=== PATIENT | female | born 1945 | race Caucasian/White ===

== ENCOUNTER 2023-03-06 19:14 | Inpatient (IN) | payer MEDICARE, OTHER ==
[~2023-03-06] VITALS: Ht 157.5 cm; Wt 81.6 kg
[2023-03-06 22:02] LABS: BASOPHILS % (AUTO) 0.1 % (0.0-2.0); EOSINOPHILS % (AUTO) 0.2 % (0.0-6.0); HEMATOCRIT 42 % (33-45); HEMOGLOBIN 13.2 g/dL (11.5-14.8); LYMPHOCYTES # (AUTO) 1.6 K/uL (0.8-4.8); LYMPHOCYTES % (AUTO) 19.6 % (20.0-44.0); MEAN CORPUSCULAR HEMOGLOBIN 28 PG (26.0-33.0); MEAN CORPUSCULAR HGB CONC 31 g/dl (31.0-36.0); MEAN CORPUSCULAR VOLUME 88 fL (82-100); MONOCYTES # (AUTO) 1.2 K/uL (0.1-1.30); MONOCYTES % (AUTO) 14.4 % (2.0-12.0); NEUTROPHILS # (AUTO) 5.4 K/uL (1.8-8.9); NEUTROPHILS % (AUTO) 65.7 % (43.0-81.0); PLATELET COUNT (AUTO) 195 K/uL (150-450); RED BLOOD CELL COUNT(AUTO) 4.78 MIL/uL (4.0-5.2); RED CELL DISTRIBUTION WIDTH 18.4 % (11.5-15.0); WHITE BLOOD COUNT (AUTO) 8.2 K/uL (4.3-11.0)
[2023-03-06] MEDS ORDERED: ENALAPRILAT INJ (1.25 MG/ML) 1.25 MG/ML VIAL IV ONE ×2 (22:05→22:30)
[2023-03-06] MEDS ORDERED: ONDANSETRON HCL/PF 4 MG/2 ML VIAL ONE (22:09)
[2023-03-06 22:10] LABS: CALCIUM, SERUM 9.3 mg/dL (8.5-10.1); CARBON DIOXIDE 30 mmol/L (21-32); CHLORIDE 105 mmol/L (98-107); CREATININE 0.9 mg/dL (0.6-1.3); GLUCOSE 102 mg/dL (74-106); SODIUM SERUM 141 mmol/L (136-145); UREA NITROGEN, BLOOD 34 mg/dL (7-18)
[2023-03-06] MEDS ORDERED: ONDANSETRON HCL/PF 4 MG/2 ML VIAL IV ONE (22:30)
[2023-03-07] VITALS (8 sets, daily range): BP systolic 149–183; BP diastolic 78–110; TEMP 98.1–99.4; O2SAT 96–97
[2023-03-07] MEDS ORDERED: CLOPIDOGREL BISULFATE 75 MG TABLET PO ONE (01:30)
[2023-03-07] MEDS ORDERED: MAG HYDROX/AL HYDROX/SIMETH 30 ML UDC PO PRN (01:30)
[2023-03-07] MEDS ORDERED: MAGNESIUM HYDROXIDE 30 ML UDC PO PRN (01:30)
[2023-03-07] MEDS ORDERED: ONDANSETRON HCL/PF 4 MG/2 ML VIAL IVP PRN (01:30)
[2023-03-07] MEDS ORDERED: MORPHINE SULFATE INJ 2 MG/ML DISP.SYRIN IV PRN (01:30)
[2023-03-07] MEDS ORDERED: ZOLPIDEM TARTRATE 5 MG TABLET PO PRN (01:30)
[2023-03-07] MEDS ORDERED: Z GUARD REMEDY 4 OZ OINT TP PRN (01:30)
[2023-03-07] MEDS ORDERED: CLOPIDOGREL BISULFATE 75 MG TABLET ONE (01:42)
[2023-03-07] MEDS: ENOXAPARIN SODIUM 40 MG/0.4 ML DISP.SYRIN SQ SCH ×2 (02:52→21:02)
[2023-03-07] MEDS: hydrALAZINE HCL IV 20 MG VIAL IV PRN (03:55)
[2023-03-07] MEDS: ACETAMINOPHEN 325 MG TABLET PO PRN (04:01)
[2023-03-07] MEDS ORDERED: ONDA-97 PO (05:41)
[2023-03-07] MEDS ORDERED: ACET-73 PO (05:41)
[2023-03-07] MEDS ORDERED: DOXY-326 PO (05:41)
[2023-03-07] MEDS ORDERED: BACL10TA PO (05:41)
[2023-03-07] MEDS ORDERED: METO-357 PO (05:41)
[2023-03-07] MEDS ORDERED: PRED1TAB PO (05:41)
[2023-03-07] MEDS ORDERED: CEFP200T14 PO (05:41)
[2023-03-07] MEDS ORDERED: TRAM50TA PO (05:41)
[2023-03-07] MEDS ORDERED: PREG50CA PO (05:41)
[2023-03-07] MEDS ORDERED: AMLO-212 PO (05:41)
[2023-03-07] MEDS ORDERED: LEFL20TA PO (05:41)
[2023-03-07] MEDS ORDERED: LEVO75TA7 PO (05:41)
[2023-03-07] MEDS ORDERED: PREG100C PO (05:41)
[2023-03-07] MEDS ORDERED: PRED5TAB48 PO (05:41)
[2023-03-07] MEDS: PANTOPRAZOLE 40 MG TABLET.DR PO SCH (08:02)
[2023-03-07] MEDS: CLOPIDOGREL BISULFATE 75 MG TABLET PO SCH (08:37)
[2023-03-07] MEDS ORDERED: ACET325T53 PO (08:42)
[2023-03-07] MEDS ORDERED: SERT50TA PO (08:42)
[2023-03-07] MEDS ORDERED: CLONIDINE HCL 0.1 MG TABLET PO PRN (10:00)
[2023-03-07] MEDS ORDERED: diphenhydrAMINE HCL 25 MG CAPSULE PO PRN (10:30)
[2023-03-07] MEDS: CEFTRIAXONE 1 G in IV D5W 50 ML IV SCH (12:25)
[2023-03-07] MEDS: DOXYCYCLINE HYCLATE (100 MG) 100 MG TABLET PO SCH (16:19)
[2023-03-07] MEDS: BACLOFEN (10 MG) 10 MG TABLET PO SCH (16:19)
[2023-03-07] MEDS: TRAMADOL HCL 50 MG TABLET PO SCH (16:20)
[2023-03-07] MEDS: METOPROLOL SUCCINATE 50 MG TAB.SR.24H PO SCH (16:21)
[2023-03-07] MEDS ORDERED: CEFPODOXIME PROXETIL 200 MG PO SCH (21:00)
[2023-03-07] MEDS: PREGABALIN 100 MG CAPSULE PO SCH (21:01)
[2023-03-08] MEDS: hydrALAZINE HCL IV 20 MG VIAL IV PRN ×2 (00:20→21:16)
[2023-03-08 06:21] LABS: BASOPHILS % (AUTO) 0.3 % (0.0-2.0); EOSINOPHILS # (AUTO) 0.2 K/uL (0.0-0.7); EOSINOPHILS % (AUTO) 3.2 % (0.0-6.0); HEMATOCRIT 42 % (33-45); HEMOGLOBIN 13.2 g/dL (11.5-14.8); LYMPHOCYTES # (AUTO) 1.2 K/uL (0.8-4.8); LYMPHOCYTES % (AUTO) 17.9 % (20.0-44.0); MEAN CORPUSCULAR HEMOGLOBIN 28 PG (26.0-33.0); MEAN CORPUSCULAR HGB CONC 31 g/dl (31.0-36.0); MEAN CORPUSCULAR VOLUME 88 fL (82-100); MONOCYTES # (AUTO) 0.7 K/uL (0.1-1.30); MONOCYTES % (AUTO) 10.6 % (2.0-12.0); NEUTROPHILS # (AUTO) 4.7 K/uL (1.8-8.9); PLATELET COUNT (AUTO) 158 K/uL (150-450); RED BLOOD CELL COUNT(AUTO) 4.79 MIL/uL (4.0-5.2); RED CELL DISTRIBUTION WIDTH 18.3 % (11.5-15.0); WHITE BLOOD COUNT (AUTO) 6.9 K/uL (4.3-11.0)
[2023-03-08 06:56] LABS: CALCIUM, SERUM 8.5 mg/dL (8.5-10.1); CREATININE 0.7 mg/dL (0.6-1.3); MAGNESIUM 2.1 mg/dL (1.8-2.4); PHOSPHORUS 2.3 mg/dL (2.5-4.9); POTASSIUM 3.7 mmol/L (3.5-5.1)
[2023-03-08 07:03] LABS: THYROID STIMULATING HORMONE 1.793 uIU/mL (0.358-3.74)
[2023-03-08 08:00] VITALS: BP 177/104; TEMP 98.3; O2SAT 96
[2023-03-08] MEDS: SERTRALINE HCL 50 MG TABLET PO SCH (08:15)
[2023-03-08] MEDS: BACLOFEN (10 MG) 10 MG TABLET PO SCH ×2 (08:15→17:02)
[2023-03-08] MEDS: PANTOPRAZOLE 40 MG TABLET.DR PO SCH (08:15)
[2023-03-08] MEDS: LEVOTHYROXINE SODIUM 75 MCG TABLET PO SCH (08:15)
[2023-03-08] MEDS: predniSONE 20 MG TABLET PO SCH (08:16)
[2023-03-08] MEDS: DOXYCYCLINE HYCLATE (100 MG) 100 MG TABLET PO SCH ×2 (08:16→17:02)
[2023-03-08] MEDS: TRAMADOL HCL 50 MG TABLET PO SCH ×2 (08:17→17:02)
[2023-03-08] MEDS: CLOPIDOGREL BISULFATE 75 MG TABLET PO SCH (08:25)
[2023-03-08] MEDS: METOPROLOL SUCCINATE 50 MG TAB.SR.24H PO SCH ×2 (08:25→17:02)
[2023-03-08] MEDS ORDERED: LEFLUNOMIDE 20 MG TABLET PO SCH (09:00)
[2023-03-08] MEDS ORDERED: AMLODIPINE BESYLATE 5 MG TABLET PO SCH (09:00)
[2023-03-08] MEDS ORDERED: LEFLUNOMIDE 10 MG PO SCH (09:00)
[2023-03-08] MEDS: CEFTRIAXONE 1 G in IV D5W 50 ML IV SCH (12:33)
[2023-03-08] MEDS ORDERED: NEUTRA PHOS 1 POWD.PACKET PO ONE (18:00)
[2023-03-08 19:17] VITALS: BP 149/72; TEMP 99; O2SAT 96
[2023-03-08 20:00] VITALS: BP 160/92; TEMP 99; O2SAT 96
[2023-03-08] MEDS: PREGABALIN 100 MG CAPSULE PO SCH (21:16)
[2023-03-08] MEDS: ENOXAPARIN SODIUM 40 MG/0.4 ML DISP.SYRIN SQ SCH (21:17)
[2023-03-09] VITALS: BP 141/73; TEMP 98.6; O2SAT 99
[2023-03-09 05:17] VITALS: BP 143/77; TEMP 98.5; O2SAT 96
[2023-03-09] MEDS: ACETAMINOPHEN 325 MG TABLET PO PRN ×2 (06:00→21:01)
[2023-03-09 06:02] LABS: APPEARANCE,URINE TURBID (CLEAR); BILIRUBIN,URINE NEGATIVE (NEGATIVE); BLOOD, URINE 1+ Ery/uL (NEGATIVE); COLOR,URINE DARK YELLOW (YELLOW); KETONES,URINE NEGATIVE (NEGATIVE); LEUKOCYTE ESTERASE ,URINE 1+ (NEGATIVE); NITRITE, URINE POSITIVE (NEGATIVE); PH,URINE 6.5 (5.0-8.0); PROTEIN,URINE TRACE mg/dl (NEGATIVE); UGLUCOSE NEGATIVE (NEGATIVE); UROBILINOGEN,URINE 0.2 EU/dL (0.2)
[2023-03-09 06:03] LABS: ADD URINE CULTURE YES; BACTERIA,URINE Moderate /HPF (None Seen); SQUAMOUS EPITHELIAL CELL,UR Rare /HPF (None Seen); WBC,URINE 21-50 /HPF (0-3)
[2023-03-09 06:18] LABS: BASOPHILS % (AUTO) 0.5 % (0.0-2.0); EOSINOPHILS # (AUTO) 0.2 K/uL (0.0-0.7); EOSINOPHILS % (AUTO) 3.4 % (0.0-6.0); HEMATOCRIT 41 % (33-45); HEMOGLOBIN 12.9 g/dL (11.5-14.8); LYMPHOCYTES # (AUTO) 1.8 K/uL (0.8-4.8); LYMPHOCYTES % (AUTO) 31.5 % (20.0-44.0); MEAN CORPUSCULAR HEMOGLOBIN 28 PG (26.0-33.0); MEAN CORPUSCULAR HGB CONC 31 g/dl (31.0-36.0); MEAN CORPUSCULAR VOLUME 88 fL (82-100); MONOCYTES # (AUTO) 0.8 K/uL (0.1-1.30); MONOCYTES % (AUTO) 13.3 % (2.0-12.0); NEUTROPHILS % (AUTO) 51.3 % (43.0-81.0); PLATELET COUNT (AUTO) 157 K/uL (150-450); RED BLOOD CELL COUNT(AUTO) 4.69 MIL/uL (4.0-5.2); RED CELL DISTRIBUTION WIDTH 18.3 % (11.5-15.0); WHITE BLOOD COUNT (AUTO) 5.8 K/uL (4.3-11.0)
[2023-03-09 06:40] LABS: CALCIUM, SERUM 8.7 mg/dL (8.5-10.1); CARBON DIOXIDE 31 mmol/L (21-32); CHLORIDE 104 mmol/L (98-107); CREATININE 0.7 mg/dL (0.6-1.3); GLUCOSE 82 mg/dL (74-106); MAGNESIUM 2.3 mg/dL (1.8-2.4); PHOSPHORUS 3.4 mg/dL (2.5-4.9); SODIUM SERUM 140 mmol/L (136-145); UREA NITROGEN, BLOOD 27 mg/dL (7-18)
[2023-03-09 07:00] VITALS: BP 139/79; TEMP 98.8; O2SAT 97
[2023-03-09] MEDS: predniSONE 20 MG TABLET PO SCH (08:43)
[2023-03-09] MEDS: TRAMADOL HCL 50 MG TABLET PO SCH ×2 (08:43→16:43)
[2023-03-09] MEDS: PANTOPRAZOLE 40 MG TABLET.DR PO SCH (08:43)
[2023-03-09] MEDS: LEVOTHYROXINE SODIUM 75 MCG TABLET PO SCH (08:43)
[2023-03-09] MEDS: SERTRALINE HCL 50 MG TABLET PO SCH (08:44)
[2023-03-09] MEDS: CLOPIDOGREL BISULFATE 75 MG TABLET PO SCH (08:44)
[2023-03-09] MEDS: DOXYCYCLINE HYCLATE (100 MG) 100 MG TABLET PO SCH ×2 (08:44→16:44)
[2023-03-09] MEDS: BACLOFEN (10 MG) 10 MG TABLET PO SCH ×2 (08:44→16:42)
[2023-03-09] MEDS: AMLODIPINE BESYLATE 10 MG TABLET PO SCH (08:44)
[2023-03-09] MEDS: METOPROLOL SUCCINATE 50 MG TAB.SR.24H PO SCH ×2 (08:45→16:44)
[2023-03-09] MEDS: LEFLUNOMIDE 10 MG PO SCH (08:46)
[2023-03-09] MEDS: CEFTRIAXONE 1 G in IV D5W 50 ML IV SCH (11:47)
[2023-03-09 12:00] VITALS: BP 130/55; TEMP 98.7; O2SAT 96
[2023-03-09] MEDS ORDERED: IV NS 0.9% 250 ML IV ONE (14:06)
[2023-03-09] MEDS ORDERED: IOHEXOL-350 100 ML VIAL IV ONE (14:06)
[2023-03-09] MEDS ORDERED: CT SWABBABLE VALVE TRANS SET 1 EA INFUS.SET MC ONE (14:06)
[2023-03-09] MEDS ORDERED: NITROGLYCERIN 0.4 MG/TAB BOTTLE ONE (14:10)
[2023-03-09] MEDS ORDERED: METOPROLOL TARTRATE INJ 5 MG/5 ML AMPUL ONE ×4 (14:11→15:08)
[2023-03-09] MEDS ORDERED: NITROGLYCERIN 0.4 MG/TAB BOTTLE SL ONE (14:30)
[2023-03-09] MEDS: METOPROLOL TARTRATE INJ 5 MG/5 ML AMPUL IVP PRN ×6 (14:40→15:05)
[2023-03-09 16:00] VITALS: BP 124/65; TEMP 98.1; O2SAT 97
[2023-03-09 20:00] VITALS: BP 120/62; TEMP 98.7; O2SAT 97
[2023-03-09] MEDS: PREGABALIN 100 MG CAPSULE PO SCH (21:01)
[2023-03-09] MEDS: ENOXAPARIN SODIUM 40 MG/0.4 ML DISP.SYRIN SQ SCH (21:03)
[2023-03-10] VITALS (7 sets, daily range): BP systolic 134–154; BP diastolic 67–85; TEMP 97.7–99.3; O2SAT 96–98
[2023-03-10] MEDS: PANTOPRAZOLE 40 MG TABLET.DR PO SCH (08:29)
[2023-03-10] MEDS: LEVOTHYROXINE SODIUM 75 MCG TABLET PO SCH (08:30)
[2023-03-10] MEDS: DOXYCYCLINE HYCLATE (100 MG) 100 MG TABLET PO SCH ×2 (08:31→17:34)
[2023-03-10] MEDS: BACLOFEN (10 MG) 10 MG TABLET PO SCH ×2 (08:31→17:34)
[2023-03-10] MEDS: SERTRALINE HCL 50 MG TABLET PO SCH (08:31)
[2023-03-10] MEDS: TRAMADOL HCL 50 MG TABLET PO SCH ×2 (08:32→17:34)
[2023-03-10] MEDS: predniSONE 20 MG TABLET PO SCH (08:32)
[2023-03-10] MEDS: CLOPIDOGREL BISULFATE 75 MG TABLET PO SCH (08:33)
[2023-03-10] MEDS: AMLODIPINE BESYLATE 10 MG TABLET PO SCH (08:37)
[2023-03-10] MEDS: LEFLUNOMIDE 10 MG PO SCH (08:37)
[2023-03-10] MEDS: METOPROLOL SUCCINATE 50 MG TAB.SR.24H PO SCH ×2 (08:38→17:34)
[2023-03-10] MEDS: CEFTRIAXONE 1 G in IV D5W 50 ML IV SCH (12:22)
[2023-03-10] MEDS: ACETAMINOPHEN 325 MG TABLET PO PRN (12:22)
[2023-03-10] MEDS: ENOXAPARIN SODIUM 40 MG/0.4 ML DISP.SYRIN SQ SCH (20:34)
[2023-03-10] MEDS: PREGABALIN 100 MG CAPSULE PO SCH (22:16)
[2023-03-11 08:00] VITALS: BP 130/74; TEMP 98.1; O2SAT 95
[2023-03-11] MEDS: LEVOTHYROXINE SODIUM 75 MCG TABLET PO SCH (08:27)
[2023-03-11] MEDS: TRAMADOL HCL 50 MG TABLET PO SCH (08:28)
[2023-03-11] MEDS: METOPROLOL SUCCINATE 50 MG TAB.SR.24H PO SCH (08:28)
[2023-03-11] MEDS: PANTOPRAZOLE 40 MG TABLET.DR PO SCH (08:28)
[2023-03-11] MEDS: BACLOFEN (10 MG) 10 MG TABLET PO SCH (08:29)
[2023-03-11] MEDS: CLOPIDOGREL BISULFATE 75 MG TABLET PO SCH (08:29)
[2023-03-11] MEDS: predniSONE 20 MG TABLET PO SCH (08:29)
[2023-03-11] MEDS: DOXYCYCLINE HYCLATE (100 MG) 100 MG TABLET PO SCH (08:29)
[2023-03-11] MEDS: SERTRALINE HCL 50 MG TABLET PO SCH (08:29)
[2023-03-11 08:33] VITALS: BP 130/74
[2023-03-11] MEDS: AMLODIPINE BESYLATE 10 MG TABLET PO SCH (08:33)
[2023-03-11] MEDS: LEFLUNOMIDE 10 MG PO SCH (10:38)
== END 2023-03-11 11:49 | DRG 206 ==
LOC: ER 19:17 → TELE 03-07 01:33 → MED 03-10 12:21
PROVIDERS: ADMIT Internal Medicine; ATTEND Internal Medicine
DX: M94.0 Chondrocostal junction syndrome [Tietze] (principal); G93.32 Myalgic encephalomyelitis/chronic fatigue syndrome; M06.9 Rheumatoid arthritis, unspecified; I25.10 Atherosclerotic heart disease of native coronary artery without angina pectoris; E78.5 Hyperlipidemia, unspecified; I10 Essential (primary) hypertension; Z86.73 Personal history of transient ischemic attack (TIA), and cerebral infarction without residual deficits; Z88.0 Allergy status to penicillin; Z79.84 Long term (current) use of oral hypoglycemic drugs; Z88.2 Allergy status to sulfonamides; E11.9 Type 2 diabetes mellitus without complications; R10.13 Epigastric pain; G89.4 Chronic pain syndrome; K22.0 Achalasia of cardia; U09.9 Post COVID-19 condition, unspecified; Z79.52 Long term (current) use of systemic steroids
CPT/HCPCS: 36415; 71045-TC; 75574; 80048-TC; 81001; 83735-TC; 84100-TC; 84443-TC; 84484-TC; 85025-TC; 87040-TC; 87081-TC; 87086-TC; 93307-TC; 94799-TC; A4223; G0378; J0360; J0696; J1650; J2270; J2405; J3490; J7040; J7050; J7060; Q0163; Q9967

== ENCOUNTER 2023-03-13 18:48 | Inpatient (IN) | payer MEDICARE, OTHER ==
[~2023-03-13] VITALS: Ht 162.6 cm; Wt 73.0 kg
[~2023-03-13 18:48] MED LIST: ACET325T53 PO; AMLO-212 PO; BACL10TA PO; CEFP200T14 PO; DOXY-326 PO; LEFL20TA PO; LEVO75TA7 PO; METO-357 PO; ONDA-97 PO; PRED1TAB PO; PREG100C PO; PREG50CA PO; SERT50TA PO; TRAM50TA PO
[2023-03-13] MEDS ORDERED: BISA10SU11 RC (19:26)
[2023-03-13] MEDS ORDERED: NA P133E RC (19:26)
[2023-03-13] MEDS ORDERED: MAGN400O6 PO (19:26)
[2023-03-13] MEDS ORDERED: HYDR-4077 PO (19:26)
[2023-03-13] MEDS ORDERED: ASPI-1420 PO (19:26)
[2023-03-13] MEDS ORDERED: PRED1TAB PO (19:26)
[2023-03-13] MEDS ORDERED: DOCU-141 PO (19:26)
[2023-03-13] MEDS ORDERED: ACET-2605 PO ×2 (19:26)
[2023-03-13] MEDS ORDERED: ATOR20TA PO (19:26)
[2023-03-13 20:08] LABS: BASOPHILS # (AUTO) 0.1 K/uL (0.0-0.2); BASOPHILS % (AUTO) 0.7 % (0.0-2.0); EOSINOPHILS % (AUTO) 0.3 % (0.0-6.0); HEMATOCRIT 33 % (33-45); HEMOGLOBIN 10.2 g/dL (11.5-14.8); LYMPHOCYTES # (AUTO) 2.8 K/uL (0.8-4.8); MEAN CORPUSCULAR HEMOGLOBIN 27 PG (26.0-33.0); MEAN CORPUSCULAR HGB CONC 31 g/dl (31.0-36.0); MEAN CORPUSCULAR VOLUME 88 fL (82-100); MONOCYTES # (AUTO) 1.2 K/uL (0.1-1.30); MONOCYTES % (AUTO) 11.2 % (2.0-12.0); NEUTROPHILS % (AUTO) 62.8 % (43.0-81.0); PLATELET COUNT (AUTO) 159 K/uL (150-450); RED BLOOD CELL COUNT(AUTO) 3.73 MIL/uL (4.0-5.2); RED CELL DISTRIBUTION WIDTH 17.8 % (11.5-15.0); WHITE BLOOD COUNT (AUTO) 11.1 K/uL (4.3-11.0)
[2023-03-13 20:30] LABS: CALCIUM, SERUM 8.7 mg/dL (8.5-10.1); CARBON DIOXIDE 34 mmol/L (21-32); CHLORIDE 106 mmol/L (98-107); GLUCOSE 97 mg/dL (74-106); POTASSIUM 4.7 mmol/L (3.5-5.1); SODIUM SERUM 143 mmol/L (136-145); UREA NITROGEN, BLOOD 36 mg/dL (7-18)
[2023-03-13 20:36] LABS: ALANINE AMINOTRANSFERASE 18 U/L (12-78); ALBUMIN 2.4 g/dL (3.4-5.0); ALKALINE PHOSPHATASE 51 U/L (46-116); ASPARTATE AMINOTRANSFERASE 18 U/L (15-37); BILIRUBIN,DIRECT 0.1 mg/dL (0.0-0.2); BILIRUBIN,TOTAL 0.3 mg/dL (0.2-1.0); LIPASE 84 U/L (73-393); TOTAL PROTEIN, SERUM 5.7 g/dL (6.4-8.2)
[2023-03-13 21:54] LABS: APPEARANCE,URINE CLEAR (CLEAR); BILIRUBIN,URINE NEGATIVE (NEGATIVE); BLOOD, URINE NEGATIVE Ery/uL (NEGATIVE); COLOR,URINE YELLOW (YELLOW); KETONES,URINE NEGATIVE (NEGATIVE); LEUKOCYTE ESTERASE ,URINE NEGATIVE (NEGATIVE); NITRITE, URINE NEGATIVE (NEGATIVE); PROTEIN,URINE NEGATIVE (NEGATIVE); UGLUCOSE NEGATIVE (NEGATIVE); UROBILINOGEN,URINE 0.2 EU/dL (0.2)
[2023-03-13 23:30] VITALS: BP 132/68; TEMP 99
[2023-03-14] MEDS ORDERED: ACETAMINOPHEN 325 MG TABLET PO PRN (02:40)
[2023-03-14] MEDS ORDERED: ONDANSETRON HCL/PF 4 MG/2 ML VIAL IVP PRN (07:00)
[2023-03-14] MEDS ORDERED: Z GUARD REMEDY 4 OZ OINT TP PRN (07:00)
[2023-03-14] MEDS: IV NS 0.9% 1,000 ML IV PRN ×2 (07:07→20:30)
[2023-03-14] MEDS ORDERED: PANTOPRAZOLE 40 MG TABLET.DR PO SCH (07:30)
[2023-03-14] MEDS: LEVOTHYROXINE SODIUM 75 MCG TABLET PO SCH (07:39)
[2023-03-14 08:35] VITALS: BP 150/70; TEMP 97.9; O2SAT 100
[2023-03-14] MEDS ORDERED: LEFLUNOMIDE 20 MG TABLET PO SCH (09:00)
[2023-03-14] MEDS: TRAMADOL HCL 50 MG TABLET PO SCH (09:24)
[2023-03-14] MEDS: BACLOFEN (10 MG) 10 MG TABLET PO SCH ×2 (09:24→16:09)
[2023-03-14] MEDS: PREGABALIN 25 MG CAPSULE PO SCH (09:24)
[2023-03-14] MEDS: predniSONE 1 MG TABLET PO SCH (09:25)
[2023-03-14] MEDS: AMLODIPINE BESYLATE 5 MG TABLET PO SCH ×2 (09:26→20:27)
[2023-03-14 10:22] LABS: HEMOGLOBIN 9.5 g/dL (11.5-14.8)
[2023-03-14] MEDS: PANTOPRAZOLE 40 MG VIAL IV SCH ×2 (10:37→16:09)
[2023-03-14 17:57] LABS: HEMOGLOBIN 9.7 g/dL (11.5-14.8)
[2023-03-14 20:00] VITALS: BP 148/72; TEMP 99.5; O2SAT 100
[2023-03-14] MEDS: ACETAMINOPHEN 325 MG TABLET PO PRN (20:26)
[2023-03-14] MEDS: PREGABALIN 100 MG CAPSULE PO SCH (21:09)
[2023-03-14] MEDS: ATORVASTATIN 10 MG TABLET PO SCH (21:09)
[2023-03-15 01:49] LABS: HEMOGLOBIN 9.6 g/dL (11.5-14.8)
[2023-03-15 06:15] LABS: BASOPHILS # (AUTO) 0.1 K/uL (0.0-0.2); BASOPHILS % (AUTO) 1.3 % (0.0-2.0); EOSINOPHILS # (AUTO) 0.2 K/uL (0.0-0.7); EOSINOPHILS % (AUTO) 2.3 % (0.0-6.0); HEMATOCRIT 29 % (33-45); HEMOGLOBIN 9.1 g/dL (11.5-14.8); LYMPHOCYTES # (AUTO) 2.5 K/uL (0.8-4.8); MEAN CORPUSCULAR HEMOGLOBIN 28 PG (26.0-33.0); MEAN CORPUSCULAR HGB CONC 31 g/dl (31.0-36.0); MEAN CORPUSCULAR VOLUME 90 fL (82-100); MONOCYTES # (AUTO) 1.3 K/uL (0.1-1.30); MONOCYTES % (AUTO) 14.7 % (2.0-12.0); NEUTROPHILS # (AUTO) 4.6 K/uL (1.8-8.9); NEUTROPHILS % (AUTO) 52.7 % (43.0-81.0); PLATELET COUNT (AUTO) 170 K/uL (150-450); RED BLOOD CELL COUNT(AUTO) 3.27 MIL/uL (4.0-5.2); RED CELL DISTRIBUTION WIDTH 17.9 % (11.5-15.0); WHITE BLOOD COUNT (AUTO) 8.8 K/uL (4.3-11.0)
[2023-03-15 06:53] LABS: CALCIUM, SERUM 8.4 mg/dL (8.5-10.1); CREATININE 0.7 mg/dL (0.6-1.3); MAGNESIUM 1.7 mg/dL (1.8-2.4); PHOSPHORUS 2.7 mg/dL (2.5-4.9)
[2023-03-15] MEDS: LEVOTHYROXINE SODIUM 75 MCG TABLET PO SCH (07:29)
[2023-03-15 07:30] VITALS: BP 166/73; TEMP 98.4; O2SAT 100
[2023-03-15 09:04] LABS: HEMOGLOBIN 8.8 g/dL (11.5-14.8)
[2023-03-15] MEDS: BACLOFEN (10 MG) 10 MG TABLET PO SCH ×2 (09:05→16:47)
[2023-03-15] MEDS: PREGABALIN 25 MG CAPSULE PO SCH (09:05)
[2023-03-15] MEDS: TRAMADOL HCL 50 MG TABLET PO SCH (09:05)
[2023-03-15] MEDS: AMLODIPINE BESYLATE 5 MG TABLET PO SCH ×2 (09:06→20:24)
[2023-03-15] MEDS: predniSONE 1 MG TABLET PO SCH (09:07)
[2023-03-15] MEDS: PANTOPRAZOLE 40 MG VIAL IV SCH ×2 (09:48→16:47)
[2023-03-15] MEDS: ACETAMINOPHEN 325 MG TABLET PO PRN (10:18)
[2023-03-15] MEDS ORDERED: MAGNESIUM OXIDE 400 MG TABLET PO ONE (11:00)
[2023-03-15] MEDS ORDERED: TRAMADOL HCL 50 MG TABLET PO PRN (11:30)
[2023-03-15] MEDS: IV NS 0.9% 1,000 ML IV PRN (15:34)
[2023-03-15 16:00] VITALS: BP 124/75; TEMP 98.4; O2SAT 99
[2023-03-15 19:05] LABS: HEMOGLOBIN 8.8 g/dL (11.5-14.8)
[2023-03-15 20:00] VITALS: BP 160/83; TEMP 97.8; O2SAT 99
[2023-03-15 21:00] VITALS: BP 151/87; O2SAT 99
[2023-03-15] MEDS: ATORVASTATIN 10 MG TABLET PO SCH (21:10)
[2023-03-15] MEDS: PREGABALIN 100 MG CAPSULE PO SCH (21:10)
[2023-03-16 01:44] LABS: HEMOGLOBIN 8.6 g/dL (11.5-14.8)
[2023-03-16] MEDS: IV NS 0.9% 1,000 ML IV PRN (05:10)
[2023-03-16] MEDS: ACETAMINOPHEN 325 MG TABLET PO PRN (05:28)
[2023-03-16 07:00] VITALS: BP 142/71; TEMP 98.2; O2SAT 100
[2023-03-16] MEDS: predniSONE 1 MG TABLET PO SCH (08:24)
[2023-03-16 08:25] VITALS: BP 142/71
[2023-03-16] MEDS: AMLODIPINE BESYLATE 5 MG TABLET PO SCH (08:25)
[2023-03-16] MEDS: PREGABALIN 25 MG CAPSULE PO SCH (08:25)
[2023-03-16] MEDS: BACLOFEN (10 MG) 10 MG TABLET PO SCH (08:25)
[2023-03-16] MEDS: LEVOTHYROXINE SODIUM 75 MCG TABLET PO SCH (08:25)
[2023-03-16] MEDS ORDERED: PANT40TA2 PO (08:52)
[2023-03-16] MEDS ORDERED: LEFLUNOMIDE 20 MG TABLET PO SCH (09:00)
[2023-03-16 09:15] LABS: BASOPHILS # (AUTO) 0.1 K/uL (0.0-0.2); BASOPHILS % (AUTO) 0.7 % (0.0-2.0); EOSINOPHILS # (AUTO) 0.2 K/uL (0.0-0.7); EOSINOPHILS % (AUTO) 2.8 % (0.0-6.0); HEMATOCRIT 28 % (33-45); LYMPHOCYTES # (AUTO) 1.9 K/uL (0.8-4.8); LYMPHOCYTES % (AUTO) 24.9 % (20.0-44.0); MEAN CORPUSCULAR HEMOGLOBIN 28 PG (26.0-33.0); MEAN CORPUSCULAR HGB CONC 32 g/dl (31.0-36.0); MEAN CORPUSCULAR VOLUME 89 fL (82-100); MONOCYTES % (AUTO) 12.7 % (2.0-12.0); NEUTROPHILS # (AUTO) 4.5 K/uL (1.8-8.9); NEUTROPHILS % (AUTO) 58.9 % (43.0-81.0); PLATELET COUNT (AUTO) 209 K/uL (150-450); RED CELL DISTRIBUTION WIDTH 17.4 % (11.5-15.0); WHITE BLOOD COUNT (AUTO) 7.6 K/uL (4.3-11.0)
[2023-03-16] MEDS: PANTOPRAZOLE 40 MG VIAL IV SCH (09:41)
[2023-03-16] MEDS ORDERED: PANTOPRAZOLE 40 MG/PACK PACK PO SCH (17:00)
== END 2023-03-16 12:50 | DRG 393 ==
LOC: ER 18:58 → TELE 22:32 → MED 03-14 06:55
PROVIDERS: ATTEND Internal Medicine
DX: K64.9 Unspecified hemorrhoids (principal); K57.91 Diverticulosis of intestine, part unspecified, without perforation or abscess with bleeding; G62.9 Polyneuropathy, unspecified; I10 Essential (primary) hypertension; E78.5 Hyperlipidemia, unspecified; M06.9 Rheumatoid arthritis, unspecified; Z98.890 Other specified postprocedural states; Z88.1 Allergy status to other antibiotic agents; Z88.0 Allergy status to penicillin; Z88.2 Allergy status to sulfonamides; Z88.8 Allergy status to other drugs, medicaments and biological substances; Z79.82 Long term (current) use of aspirin; Z79.899 Other long term (current) drug therapy; R79.89 Other specified abnormal findings of blood chemistry; K44.9 Diaphragmatic hernia without obstruction or gangrene; D64.9 Anemia, unspecified; M32.9 Systemic lupus erythematosus, unspecified; E03.9 Hypothyroidism, unspecified; M20.039 Swan-neck deformity of unspecified finger(s); Z88.6 Allergy status to analgesic agent
CPT/HCPCS: 36415; 80048-TC; 80076-TC; 83690-TC; 83735-TC; 84100-TC; 85025-TC; 85027-TC; 87086-TC; A4223; C9113; G0378; J7030; J7512

== ENCOUNTER 2024-08-07 17:32 | Inpatient (IN) | payer MEDICARE, OTHER ==
[~2024-08-07] VITALS: Ht 162.6 cm; Wt 68.5 kg
[~2024-08-07 17:32] MED LIST changes: +ACET-2605 PO; -ACET325T53 PO; +ASPI-1420 PO; +ATOR20TA PO; +AZIT250T13 PO; +BISA10SU11 RC; -CEFP200T14 PO; +DOCU-141 PO; -DOXY-326 PO; +HYDR-4077 PO; -LEFL20TA PO; +MAGN400O6 PO; +NA P133E RC; +PANT40TA2 PO; -SERT50TA PO
[2024-08-07] MEDS ORDERED: ACET325T53 PO ×2 (20:03)
[2024-08-07] MEDS ORDERED: POLY15DR31 EACHEYE (20:03)
[2024-08-07] MEDS ORDERED: LEFL10TA16 PO (20:03)
[2024-08-07] MEDS ORDERED: BUDE0.253 IH (20:03)
[2024-08-07] MEDS ORDERED: TRAM50TA2 PO (20:03)
[2024-08-07] MEDS ORDERED: LACT1CAP72 PO (20:03)
[2024-08-07] MEDS ORDERED: TRAM100T34 PO (20:03)
[2024-08-07] MEDS ORDERED: MELA5TAB PO (20:03)
[2024-08-07] MEDS ORDERED: POLY17PO4 PO (20:03)
[2024-08-07] MEDS ORDERED: BACL5TAB PO (20:03)
[2024-08-07] MEDS ORDERED: AMLO2.5T4 PO (20:03)
[2024-08-07] MEDS ORDERED: ENOX40DI9 SQ (20:03)
[2024-08-07] MEDS ORDERED: ACET-73 PO (20:03)
[2024-08-07] MEDS ORDERED: FLUT1BLS15 IH (20:03)
[2024-08-07] MEDS ORDERED: GUAI100S9 PO (20:03)
[2024-08-07] MEDS ORDERED: METO50TA16 PO (20:03)
[2024-08-07] MEDS ORDERED: OMEP40CA21 PO (20:03)
[2024-08-07] MEDS ORDERED: FLUT16SP16 BNOSTRILS (20:03)
[2024-08-07] MEDS ORDERED: MULT-213 PO (20:03)
[2024-08-07] MEDS ORDERED: LIDO30AD10 TP (20:03)
[2024-08-07] MEDS ORDERED: PRED5TAB PO (20:03)
[2024-08-07] MEDS ORDERED: NALO4SPR NS (20:03)
[2024-08-07] MEDS ORDERED: ENOXAPARIN SODIUM 30 MG/0.3 ML DISP.SYRIN SQ SCH (20:30)
[2024-08-07] MEDS ORDERED: MAG HYDROX/AL HYDROX/SIMETH 30 ML UDC PO PRN (20:30)
[2024-08-07] MEDS ORDERED: Z GUARD REMEDY 4 OZ OINT TP PRN (20:30)
[2024-08-07] MEDS ORDERED: POLYETHYLENE GLYCOL 3350 17 GM POWD.PACK PO PRN (21:00)
[2024-08-07] MEDS ORDERED: CEFEPIME 1 GM in IV D5W 50 ML IV SCH (21:00)
[2024-08-07] MEDS ORDERED: POLYVINYL ALCOHOL 15 ML BOTTLE EACHEYE PRN (21:30)
[2024-08-07] MEDS ORDERED: CEFEPIME 1 GM VIAL ONE (22:19)
[2024-08-07] MEDS: CEFEPIME 1 GM in IV D5W 50 ML IV ONE (22:21)
[2024-08-07] MEDS: PREGABALIN 25 MG CAPSULE PO SCH (22:25)
[2024-08-07] MEDS: GUAIFENESIN 300 MG/15 ML UDC PO PRN (23:15)
[2024-08-07 23:58] VITALS: BP 135/63; TEMP 98.9; O2SAT 100
[2024-08-08] VITALS: BP 127/58; TEMP 98.2; O2SAT 98
[2024-08-08 04:00] VITALS: BP 156/68; TEMP 98.4; O2SAT 100
[2024-08-08] MEDS ORDERED: POLYVINYL ALCOHOL 15 ML BOTTLE EACHEYE PRN (06:29)
[2024-08-08] MEDS: ACETAMINOPHEN 325 MG TABLET PO PRN (06:35)
[2024-08-08] MEDS: BUDESONIDE RESPULE INH 0.5 MG/2 ML AMPUL.NEB HHN SCH (07:05)
[2024-08-08] MEDS ORDERED: ALBUTEROL FS 2.5 MG/3 ML VIAL.NEB IH SCH (07:35)
[2024-08-08 08:00] VITALS: BP 149/71; TEMP 98.3; O2SAT 99
[2024-08-08] MEDS: LEVOTHYROXINE SODIUM 75 MCG TABLET PO SCH (08:28)
[2024-08-08] MEDS: MULTIVIT W/MINERALS 1 TAB TABLET PO SCH (08:53)
[2024-08-08] MEDS: AMLODIPINE BESYLATE 2.5 MG TABLET PO SCH (08:53)
[2024-08-08] MEDS: PANTOPRAZOLE 40 MG VIAL IV SCH (08:54)
[2024-08-08] MEDS: METOPROLOL TARTRATE 50 MG TABLET PO SCH (08:54)
[2024-08-08] MEDS: LACTOBACILLUS RHAMNOSUS GG 1 EACH CAP.SPRINK PO SCH (08:54)
[2024-08-08] MEDS: BACLOFEN (10 MG) 10 MG TABLET PO SCH (08:54)
[2024-08-08] MEDS: LIDOCAINE 5% (PATCH) 1 EA PATCH TP SCH (08:55)
[2024-08-08] MEDS: dexaMETHasone SOD PHOSPHATE 10 MG/ML VIAL IV SCH (08:55)
[2024-08-08] MEDS: FLUTICASONE PROPIONATE 16 GM BOTTLE NS SCH (09:00)
[2024-08-08 09:01] LABS: BASOPHILS % (AUTO) 0.2 % (0.0-2.0); HEMATOCRIT 33 % (33-45); LYMPHOCYTES # (AUTO) 1.5 K/uL (0.8-4.8); LYMPHOCYTES % (AUTO) 13.7 % (20.0-44.0); MEAN CORPUSCULAR HEMOGLOBIN 29 PG (26.0-33.0); MEAN CORPUSCULAR HGB CONC 33 g/dl (31.0-36.0); MEAN CORPUSCULAR VOLUME 88 fL (82-100); MONOCYTES # (AUTO) 0.8 K/uL (0.1-1.30); MONOCYTES % (AUTO) 7.9 % (2.0-12.0); NEUTROPHILS # (AUTO) 8.3 K/uL (1.8-8.9); NEUTROPHILS % (AUTO) 78.2 % (43.0-81.0); PLATELET COUNT (AUTO) 188 K/uL (150-450); RED BLOOD CELL COUNT(AUTO) 3.77 MIL/uL (4.0-5.2); RED CELL DISTRIBUTION WIDTH 16.3 % (11.5-15.0); WHITE BLOOD COUNT (AUTO) 10.6 K/uL (4.3-11.0)
[2024-08-08 09:33] LABS: CALCIUM, SERUM 9.1 mg/dL (8.5-10.1); CREATININE 0.8 mg/dL (0.6-1.3); MAGNESIUM 2.3 mg/dL (1.8-2.4); PHOSPHORUS 1.8 mg/dL (2.5-4.9); POTASSIUM 4.5 mmol/L (3.5-5.1)
[2024-08-08 09:55] LABS: ABG BASE EXCESS 2.2 mmol/L (-2.0-3.0); ABG OXYGEN SATURATION 95.6 % (94.0-98.0); ABG PCO2 46.5 mmHg (32.0-45.0); ABG PH 7.391 (7.350-7.450); ABG PO2 85.7 mmHg (83.0-108.0); ABG TOTAL HEMOGLOBIN 10.9 G/dL (12.0-16.0); COHb 0.4 % (0.5-1.5); MetHb 0.2 % (0.0-1.5); SITE, ABG RIGHT RADIAL
[2024-08-08] MEDS: ENOXAPARIN SODIUM 40 MG/0.4 ML DISP.SYRIN SQ SCH (11:10)
[2024-08-08] MEDS: TRAMADOL HCL 50 MG TABLET PO PRN (11:37)
[2024-08-08 12:00] VITALS: BP 146/73; TEMP 98.4; O2SAT 96
[2024-08-08] MEDS: IPRATROPIUM NEB FS 0.5 MG/2.5 ML AMPUL.NEB NEB SCH (13:25)
[2024-08-08] MEDS: ALBUTEROL FS 2.5 MG/3 ML VIAL.NEB NEB SCH (13:25)
[2024-08-08 16:07] VITALS: BP 118/71; TEMP 98; O2SAT 95
[2024-08-08] MEDS: K PHOS NEUTRAL 250 MG TABLET PO ONE (16:13)
[2024-08-08 20:00] VITALS: BP 142/82; TEMP 98.2; O2SAT 97
[2024-08-08] MEDS ORDERED: CEFEPIME 1 GM in IV D5W 50 ML IV SCH (21:00)
[2024-08-08] MEDS: CEFEPIME 1 GM in IV D5W 50 ML IV SCH (21:16)
[2024-08-08] MEDS: ONDANSETRON HCL/PF 4 MG/2 ML VIAL IVP PRN (22:19)
[2024-08-09] VITALS: BP 150/76; TEMP 98.5; O2SAT 100
[2024-08-09 04:00] VITALS: BP 152/77; TEMP 97.8; O2SAT 99
[2024-08-09 08:00] VITALS: BP 144/74; TEMP 98; O2SAT 98
[2024-08-09 08:05] LABS: CALCIUM, SERUM 8.9 mg/dL (8.5-10.1); CREATININE 0.8 mg/dL (0.6-1.3); POTASSIUM 4.5 mmol/L (3.5-5.1)
[2024-08-09 08:11] LABS: BASOPHILS % (AUTO) 0.1 % (0.0-2.0); HEMATOCRIT 36 % (33-45); HEMOGLOBIN 11.7 g/dL (11.5-14.8); LYMPHOCYTES # (AUTO) 1.3 K/uL (0.8-4.8); MEAN CORPUSCULAR HEMOGLOBIN 28 PG (26.0-33.0); MEAN CORPUSCULAR HGB CONC 32 g/dl (31.0-36.0); MEAN CORPUSCULAR VOLUME 89 fL (82-100); MONOCYTES # (AUTO) 0.7 K/uL (0.1-1.30); MONOCYTES % (AUTO) 9.7 % (2.0-12.0); NEUTROPHILS # (AUTO) 4.9 K/uL (1.8-8.9); NEUTROPHILS % (AUTO) 71.2 % (43.0-81.0); PLATELET COUNT (AUTO) 190 K/uL (150-450); RED CELL DISTRIBUTION WIDTH 15.9 % (11.5-15.0); WHITE BLOOD COUNT (AUTO) 6.9 K/uL (4.3-11.0)
[2024-08-09] MEDS ORDERED: ENOXAPARIN SODIUM 30 MG/0.3 ML DISP.SYRIN SQ SCH (09:00)
[2024-08-09] MEDS: PANTOPRAZOLE 40 MG TABLET.DR PO SCH (09:11)
[2024-08-09 12:00] VITALS: BP 131/59; TEMP 98; O2SAT 100
[2024-08-09 16:00] VITALS: BP 140/66; TEMP 98.4; O2SAT 100
[2024-08-09] MEDS: CLOTRIMAZOLE 1% 15 GM TUBE TP SCH (16:30)
[2024-08-09 20:00] VITALS: BP 146/76; TEMP 98.6; O2SAT 98
[2024-08-10] VITALS (7 sets, daily range): BP systolic 135–192; BP diastolic 67–93; TEMP 98.1–98.4; O2SAT 96–100
[2024-08-10] MEDS: CLONIDINE HCL 0.1 MG TABLET PO PRN (00:11)
[2024-08-10] MEDS: LEFLUNOMIDE 10 MG PO SCH (08:46)
[2024-08-10] MEDS: AMLODIPINE BESYLATE 2.5 MG TABLET PO SCH (08:47)
[2024-08-11 00:10] VITALS: BP 146/72; TEMP 97.9; O2SAT 98
[2024-08-11 04:10] VITALS: BP 140/73; TEMP 97.9; O2SAT 100
[2024-08-11 08:00] VITALS: BP 140/82; TEMP 98.2; O2SAT 96
[2024-08-11] MEDS: LACTOBACILLUS RHAMNOSUS GG 1 EACH CAP.SPRINK PO SCH (08:08)
[2024-08-11 13:48] LABS: BASOPHILS % (AUTO) 0.3 % (0.0-2.0); EOSINOPHILS % (AUTO) 0.1 % (0.0-6.0); HEMATOCRIT 40 % (33-45); HEMOGLOBIN 12.6 g/dL (11.5-14.8); LYMPHOCYTES # (AUTO) 1.9 K/uL (0.8-4.8); LYMPHOCYTES % (AUTO) 30.7 % (20.0-44.0); MEAN CORPUSCULAR HEMOGLOBIN 28 PG (26.0-33.0); MEAN CORPUSCULAR HGB CONC 32 g/dl (31.0-36.0); MEAN CORPUSCULAR VOLUME 89 fL (82-100); MONOCYTES % (AUTO) 15.8 % (2.0-12.0); NEUTROPHILS # (AUTO) 3.3 K/uL (1.8-8.9); NEUTROPHILS % (AUTO) 53.1 % (43.0-81.0); PLATELET COUNT (AUTO) 234 K/uL (150-450); RED BLOOD CELL COUNT(AUTO) 4.48 MIL/uL (4.0-5.2); RED CELL DISTRIBUTION WIDTH 16.3 % (11.5-15.0); WHITE BLOOD COUNT (AUTO) 6.3 K/uL (4.3-11.0)
[2024-08-11 16:00] VITALS: BP 146/68; TEMP 97.9; O2SAT 98
[2024-08-11 16:31] LABS: CALCIUM, SERUM 8.5 mg/dL (8.5-10.1); CREATININE 0.8 mg/dL (0.6-1.3); POTASSIUM 5.6 mmol/L (3.5-5.1)
[2024-08-11 18:52] LABS: BASOPHILS % (MANUAL) 0 % (0.0-2.0); EOSINOPHILS % (MANUAL) 0 % (0-4); LYMPHOCYTES % (MANUAL) 31 % (16-48); MONOCYTES % (MANUAL) 10 % (0-11.0); NEUTROPHILS % (MANUAL) 59 (42-76)
[2024-08-11 18:53] LABS: ANISOCYTOSIS 1+; PLATELET ESTIMATE ADEQUATE
[2024-08-11 20:00] VITALS: BP 135/68; TEMP 98.1; O2SAT 98
[2024-08-11] MEDS: MUPIROCIN OINT 2% 22 GM TUBE NS SCH (20:09)
[2024-08-12 04:00] VITALS: BP 151/75; TEMP 98.1; O2SAT 99
[2024-08-12 08:00] VITALS: BP 153/69; TEMP 97.7; O2SAT 98
[2024-08-12 12:00] VITALS: BP 153/69; TEMP 97.7; O2SAT 98
[2024-08-12] MEDS: FLUTICASONE PROPIONATE 16 GM BOTTLE NS SCH (14:35)
[2024-08-12 16:09] VITALS: BP 137/87; TEMP 98.7; O2SAT 98
[2024-08-12 16:24] LABS: CALCIUM, SERUM 8.4 mg/dL (8.5-10.1); CREATININE 1.1 mg/dL (0.6-1.3); POTASSIUM 5.3 mmol/L (3.5-5.1)
[2024-08-12 16:40] LABS: BASOPHILS % (AUTO) 0.1 % (0.0-2.0); HEMATOCRIT 39 % (33-45); HEMOGLOBIN 12.5 g/dL (11.5-14.8); LYMPHOCYTES # (AUTO) 0.9 K/uL (0.8-4.8); LYMPHOCYTES % (AUTO) 13.2 % (20.0-44.0); MEAN CORPUSCULAR HEMOGLOBIN 28 PG (26.0-33.0); MEAN CORPUSCULAR HGB CONC 33 g/dl (31.0-36.0); MEAN CORPUSCULAR VOLUME 87 fL (82-100); MONOCYTES # (AUTO) 0.2 K/uL (0.1-1.30); MONOCYTES % (AUTO) 3.1 % (2.0-12.0); NEUTROPHILS # (AUTO) 5.7 K/uL (1.8-8.9); NEUTROPHILS % (AUTO) 83.6 % (43.0-81.0); PLATELET COUNT (AUTO) 241 K/uL (150-450); RED BLOOD CELL COUNT(AUTO) 4.43 MIL/uL (4.0-5.2); RED CELL DISTRIBUTION WIDTH 15.8 % (11.5-15.0); WHITE BLOOD COUNT (AUTO) 6.8 K/uL (4.3-11.0)
[2024-08-12] MEDS: P-EPHED SUL/LORATADINE (24H) 1 TAB.SR.24H PO SCH (17:55)
[2024-08-12 18:15] LABS: PLATELET ESTIMATE ADEQU
[2024-08-12 20:00] VITALS: BP 134/74; TEMP 98.6; O2SAT 97
[2024-08-12] MEDS: MAGNESIUM HYDROXIDE 30 ML UDC PO PRN (20:45)
[2024-08-12] MEDS: MONTELUKAST SODIUM (10MG) 10 MG TABLET PO SCH (22:22)
[2024-08-13 04:00] VITALS: BP 153/85; TEMP 97.5; O2SAT 99
[2024-08-13 08:20] LABS: CALCIUM, SERUM 8.6 mg/dL (8.5-10.1); CREATININE 0.9 mg/dL (0.6-1.3); POTASSIUM 4.9 mmol/L (3.5-5.1)
[2024-08-13 08:27] LABS: BASOPHILS % (AUTO) 0.2 % (0.0-2.0); HEMATOCRIT 40 % (33-45); HEMOGLOBIN 12.9 g/dL (11.5-14.8); LYMPHOCYTES % (AUTO) 25.5 % (20.0-44.0); MEAN CORPUSCULAR HEMOGLOBIN 28 PG (26.0-33.0); MEAN CORPUSCULAR HGB CONC 32 g/dl (31.0-36.0); MEAN CORPUSCULAR VOLUME 87 fL (82-100); MONOCYTES # (AUTO) 0.7 K/uL (0.1-1.30); MONOCYTES % (AUTO) 9.4 % (2.0-12.0); NEUTROPHILS # (AUTO) 5.2 K/uL (1.8-8.9); NEUTROPHILS % (AUTO) 64.9 % (43.0-81.0); PLATELET COUNT (AUTO) 245 K/uL (150-450); RED BLOOD CELL COUNT(AUTO) 4.63 MIL/uL (4.0-5.2); RED CELL DISTRIBUTION WIDTH 15.8 % (11.5-15.0)
[2024-08-13 12:00] VITALS: BP 137/87; TEMP 97.9; O2SAT 98
[2024-08-13] MEDS: CEFEPIME 2 GM in IV D5W 100 ML IV SCH (13:18)
[2024-08-13 16:00] VITALS: BP 116/64; TEMP 98.4; O2SAT 96
[2024-08-13 20:00] VITALS: BP 121/69; TEMP 98.2; O2SAT 97
[2024-08-13 20:06] VITALS: O2SAT 97
[2024-08-13 20:16] VITALS: O2SAT 100
[2024-08-14] VITALS (12 sets, daily range): BP systolic 104–149; BP diastolic 65–82; TEMP 97.3–98.6; O2SAT 95–100
[2024-08-14 07:46] LABS: HEMATOCRIT 38 % (33-45); HEMOGLOBIN 12.4 g/dL (11.5-14.8); LYMPHOCYTES # (AUTO) 1.5 K/uL (0.8-4.8); LYMPHOCYTES % (AUTO) 19.5 % (20.0-44.0); MEAN CORPUSCULAR HEMOGLOBIN 29 PG (26.0-33.0); MEAN CORPUSCULAR HGB CONC 33 g/dl (31.0-36.0); MEAN CORPUSCULAR VOLUME 88 fL (82-100); MONOCYTES # (AUTO) 0.5 K/uL (0.1-1.30); MONOCYTES % (AUTO) 6.8 % (2.0-12.0); NEUTROPHILS # (AUTO) 5.6 K/uL (1.8-8.9); NEUTROPHILS % (AUTO) 73.7 % (43.0-81.0); PLATELET COUNT (AUTO) 256 K/uL (150-450); RED BLOOD CELL COUNT(AUTO) 4.36 MIL/uL (4.0-5.2); WHITE BLOOD COUNT (AUTO) 7.6 K/uL (4.3-11.0)
[2024-08-14 07:53] LABS: CALCIUM, SERUM 8.7 mg/dL (8.5-10.1); CREATININE 0.7 mg/dL (0.6-1.3)
[2024-08-14] MEDS ORDERED: DEXA4TAB68 PO (08:18)
[2024-08-15] VITALS (10 sets, daily range): BP systolic 120–136; BP diastolic 65–67; TEMP 97.7–98; O2SAT 94–100
== END 2024-08-15 16:00 | disposition home health service (06) | DRG 871 ==
LOC: TELE1 18:33 → MEDSG1 08-11 10:14
PROVIDERS: ADMIT Nurse Practitioner Acute Care; ATTEND Internal Medicine
DX: A41.89 Other specified sepsis (principal); J12.82 Pneumonia due to coronavirus disease 2019; U07.1 COVID-19; N17.0 Acute kidney failure with tubular necrosis; J96.21 Acute and chronic respiratory failure with hypoxia; J44.0 Chronic obstructive pulmonary disease with (acute) lower respiratory infection; I25.10 Atherosclerotic heart disease of native coronary artery without angina pectoris; I10 Essential (primary) hypertension; G62.9 Polyneuropathy, unspecified; M06.9 Rheumatoid arthritis, unspecified; E03.9 Hypothyroidism, unspecified; E78.5 Hyperlipidemia, unspecified; Z88.2 Allergy status to sulfonamides; Z88.0 Allergy status to penicillin; Z88.6 Allergy status to analgesic agent; Z88.8 Allergy status to other drugs, medicaments and biological substances; T38.0X5A Adverse effect of glucocorticoids and synthetic analogues, initial encounter; M79.7 Fibromyalgia; M19.90 Unspecified osteoarthritis, unspecified site; J32.0 Chronic maxillary sinusitis; E87.5 Hyperkalemia; Z86.16 Personal history of COVID-19; Z99.81 Dependence on supplemental oxygen; Z88.1 Allergy status to other antibiotic agents; B96.89 Other specified bacterial agents as the cause of diseases classified elsewhere; Z79.01 Long term (current) use of anticoagulants; Z79.51 Long term (current) use of inhaled steroids; Z79.899 Other long term (current) drug therapy; Z79.890 Hormone replacement therapy; Z87.440 Personal history of urinary (tract) infections
CPT/HCPCS: 36415; 36600; 70220-TC; 71045-TC; 71250-TC; 80048-TC; 82803-TC; 83735-TC; 84100-TC; 85025-TC; 85378-TC; 86140-TC; 87040-TC; 87081-TC; 94760-TC; 94799-TC; 97112-TC; 97530-TC; A4223; G0378; J0692; J1100; J1650; J2405; J2470; J7050; J7060